=== PATIENT | female | born 1970 ===

== ENCOUNTER 2017-05-10 15:22 | Emergency (ER) | payer SELFPAY ==
[2017-05-10 15:44] VITALS: BMI 25.0
[2017-05-10 16:07] VITALS: BP 141/86; TEMP 98.2
--- NOTE | 2017-05-10 16:14 | C.PDOC ---
History Of Present Illness Patient is a 46 year old female who presents to the ER with a complaint of digitally positional and reproducible pain to the left forearm that began this morning. 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 Patient believes symptoms are due to her high cholesterol. Denies recent injury, weakness or numbness. Time Seen by Provider: 05/10/17 15:43 Chief Complaint (Nursing): Weakness/Neurological Deficit History Per: Patient History/Exam Limitations: no limitations Onset/Duration Of Symptoms: Hrs Current Symptoms Are (Timing): Still Present Fall Associated With With Symptoms: No Recent travel outside of the [place]: No Past Medical History Reviewed: Historical Data, Nursing Documentation, Vital Signs Vital Signs: Last Vital Signs Temp 98.2 F 05/10/17 15:30 Pulse 80 05/10/17 16:33 Resp 18 05/10/17 16:33 BP 141/86 05/10/17 16:33 Pulse Ox 96 05/10/17 17:25 - Medical History PMH: No Chronic Diseases Surgical History: No Surg Hx Family History: States: Unknown Family Hx - Social History Hx Tobacco Use: No Hx Alcohol Use: No Hx Substance Use: No - Immunization History Hx Tetanus Toxoid Vaccination: No Hx Influenza Vaccination: No Hx Pneumococcal Vaccination: No Review Of Systems Musculoskeletal: Positive for: Arm Pain (Left forearm ) Neurological: Negative for: Weakness, Numbness Physical Exam - Physical Exam Appears: Non-toxic, No Acute Distress Skin: Normal Color, Warm, Dry Head: Atraumatic, Normacephalic Oral Mucosa: Moist Chest: Symmetrical, No Tenderness Cardiovascular: Rhythm Regular, No Murmur Respiratory: Normal Breath Sounds, No Rales, No Rhonchi, No Wheezing Extremity: Normal ROM, Tenderness (digitally positional and reproducible to left forearm) Neurological/Psych: Oriented x3, Normal Speech, Normal Cognition ED Course And Treatment ECG: Interpreted By Me ECG Rhythm: Sinus Rhythm ECG Interpretation: Normal Rate From EC O2 Sat by Pulse Oximetry: 96 Pulse Ox Interpretation: Normal Progress Note: EKG ordered. Motrin administered. Medical Decision Making Medical Decision Making: mild L forearm muscular discomfort, positionally and digitally reproducable, works typing job, no cardiac nor respiratory symptoms ekg nl LOW susp of radiating arm pain c/w ACS Disposition Doctor Will See Patient In The: Office Counseled Patient/Family Regarding: Studies Performed, Diagnosis - Disposition Referrals: [facility] [Outside] Disposition: HOME/ ROUTINE Disposition Time: 16:14 Condition: GOOD Additional Instructions: evaristo ibuprofeno 400 mg tomi necessario para lidia del brazo. Tamiko lidia hoy NO son relacionados con problemas cardiacos. Guadalupe electrocardiograma salio NORMAL Instructions: Wrist Sprain (ED) Print Language: BOLIVIAN - Clinical Impression Clinical Impression: Forearm sprain - Scribe Statement The provider has reviewed the documentation as recorded by the Scribtres Chun All medical record entries made by the Raibe were at my direction and personally dictated by me. I have reviewed the chart and agree that the record accurately reflects my personal performance of the history, physical exam, medical decision making, and the department course for this patient. I have also personally directed, reviewed, and agree with the discharge instructions and disposition.
[2017-05-10 16:33] VITALS: PULSE 80; RESP 18
[2017-05-10 17:22] VITALS: O2SAT 96
--- NOTE | 2017-05-11 10:03 | CARD ---
APPROVED REPORT EKG Measurement Heart [id number] <Conclusion> Normal sinus rhythm Normal ECG
== END 2017-05-10 16:33 | disposition home or self-care (01) ==
LOC: C.ER 15:22
DX: S63.592A Other specified sprain of left wrist, initial encounter (principal); X50.3XXA Overexertion from repetitive movements, initial encounter; Y93.89 Activity, other specified; Y92.89 Other specified places as the place of occurrence of the external cause